=== PATIENT | male | born 1965 ===

== ENCOUNTER 2025-01-29 07:00 | Day surgery (SDC) | payer MEDICAID ==
[~2025-01-29 07:00] MED LIST: ALPRAZolam 0.25 MG TAB PO PRN; ALPRAZolam 0.5 MG TAB PO PRN; HEPARIN SODIUM,PORCINE (1 ML) 2,500 UNIT in SODIUM CHLORIDE 0.9% 250 ML IRRIGATION PRN; HEPARIN SODIUM,PORCINE 10,000 UNIT in SODIUM CHLORIDE 0.9% 1,000 ML IRRIGATION PRN; NITROGLYCERIN SL TABS 0.4 MG TAB SUBLINGUAL PRN
[2025-01-29 07:37] LABS: Glucose,Whole Blood 176 mg/dL (70-110)
[2025-01-29 07:43] LABS: Basophils % (A) 1 %; Eosinophils # (A) 0.2 k/uL (0-0.7); Eosinophils % (A) 2 %; HCT 48.1 % (39.0-53.0); Lymphocytes # (A) 1.7 k/uL (1.0-4.8); Lymphocytes % (A) 22 %; MCH 28.9 pg (25.0-35.0); MCHC 31.1 g/dL (31.0-37.0); MCV 92.7 fL (80.0-100.0); Monocytes # (A) 0.4 k/uL (0-1.0); Monocytes % (A) 6 %; Neutrophils # (A) 5.1 k/uL (1.3-7.7); Neutrophils % (A) 68 %; Platelet Count 143 k/uL (150-450); RBC 5.18 m/uL (4.30-5.90); RDW 14.2 % (11.5-15.5); WBC 7.5 k/uL (3.8-10.6)
[2025-01-29] MEDS: ASPIRIN 325 MG TAB PO STA (07:50)
[2025-01-29 07:58] LABS: African American GFR (CKD) >90 (>60 ml/min/1.73 sqM); Anion Gap 9 mmol/L; Blood Urea Nitrogen 14 mg/dL (9-20); Calcium 9.4 mg/dL (8.4-10.2); Carbon Dioxide 26 mmol/L (22-30); Chloride 100 mmol/L (98-107); Glucose 190 mg/dL (74-99); Non-African American GFR(CKD) >90 (>60 ml/min/1.73 sqM); Sodium 135 mmol/L (137-145)
[2025-01-29] MEDS: SODIUM CHLORIDE 0.9% 1,000 ML in EMPTY BAG 1 BAG IV SCH ×2 (07:58→18:56)
[2025-01-29] MEDS: IV FLUID CONTINUATION 1,000 ML IV ONE (07:59)
[2025-01-29] MEDS: fentaNYL (PF) 50 MCG/ML 2 ML AMP IVP ONE (09:08)
[2025-01-29] MEDS: MIDAZOLAM 2 MG/2 ML VIAL IVP ONE (09:16)
[2025-01-29] MEDS: LIDOCAINE 1% INJ 10MG/ML (20 ML MDV) SQ ONE (09:16)
[2025-01-29] MEDS: VERAPAMIL SYRINGE (5 MG/10 ML) INTRAARTER ONE (09:18)
[2025-01-29] MEDS: CLOPIDOGREL 75 MG TAB PO ONE (09:32)
[2025-01-29] MEDS: IOPAMIDOL-370 100ML BTL INJ ONE ×2 (09:50→10:07)
[2025-01-29] MEDS ORDERED: NITROGLYCERIN SL TABS 0.4 MG TAB SUBLINGUAL PRN (10:26)
[2025-01-29] MEDS ORDERED: MAG HYDROX/AL HYDROX/SIMETH 30 ML CUP PO PRN (10:26)
[2025-01-29] MEDS ORDERED: RX INFO: IV CONTRAST WAS GIVEN 1 EACH MISC MISCELLANE PRN (10:26)
[2025-01-29] MEDS ORDERED: ZOLPIDEM 5 MG TAB PO PRN (10:26)
[2025-01-29] MEDS ORDERED: ATROPINE SULFATE 0.1 MG/ML 10ML SYRINGE IV PRN (10:26)
--- NOTE | 2025-01-29 10:36 | P.CARDCATH ---
Date of Procedure: 01/29/25 Description of Procedure: Cardiac Catheterization: The patient is a 59-year-old male with a known history of hypertension, hyperlipidemia, diabetes, history of CAD and prior PCI of the LAD and persistent atrial fibrillation who had a recent abnormal myocardial fusion imaging with evidence of stress-induced schema involving the anterolateral wall. Recommendations were made regarding cardiac catheterization, the risks and the complications were discussed with the patient who is in full understanding and agreement. Procedure Description: Patient was brought to [facility] in fasting semi-sedated state after receiving Fentanyl and Benadryl achieiving moderate conscious sedated state. Using Xylocaine Anesthesia and modified Seldinger technique, a 6-[place] sheath was introduced in the right radial artery . Subsequently, selective coronary angiography was performed using a 5-[place] 3.5 bend Anabel catheter. Multiple views of the coronary artery including hemiaxial views were obtained. The 5 [place] pigtail catheter was used to cross the aortic valve and LVEDP was calculated. PCI: After removing the catheters a 6 [place] CLS 3.5 guiding catheter was introduced and after cannulating the left main a 0.014 BMW J-wire was positioned in the distal LAD. Subsequently a 2.5 x 12 mm trek balloon was advanced and 2 inflations at 8 rosio were done. After removing the balloon a Joystickers ambler IVUS catheter was introduced and images were obtained that revealed a distal vessel of 3.5-4 mm and calcified artery. After removing the catheter a 3.5 x 18 mm Xience sharron point stent was advanced and deployed at 16 rosio, repeat IVUS imaging was performed and revealed under deployment proximally. At that point a 4.0 x 8 mm NC trek balloon was advanced and multiple inflations at 12 rosio were done. After removing the wire images were obtained and revealed stable successful stenting. Following that, catheter and sheath were removed. Hemostasis was obtained with deployment of vascular band . There was no immediate complication. Patient was returned to room in stable condition. Of note, the patient received a total of 7000 units of intravenous heparin as well as intra-arterial verapamil. He received an oral loading dose of clopidogrel. His ACT was monitored. He had chest discomfort and EKG changes that resolved at the end of the procedure. Findings: Fluoroscopy: Calcifications of the coronary arteries was noted Left main: This is a large size vessel, trifurcating into LAD, ramus intermedius and left circumflex, left main has no obstructive disease LAD: This is a large size vessel, reaching to the apex with a wraparound apex segment, giving rise to small diagonal branch and mid segment. The proximal LAD has a 95% eccentric lesion close to the ostium. The mid LAD stented segment is patent, there is mild in-stent restenosis of 20 to 30% without high-grade stenosis Left circumflex: This is a codominant vessel, large in caliber, giving rise to a small obtuse marginal branch proximally, the second obtuse marginal branches in the midsegment and small. Distally is bifurcating into PLV and PDA. The left circumflex has mild intimal disease with no high-grade stenosis RCA: This is a codominant vessel, moderate in caliber, giving rise to a PDA. In the distal RCA there is a 60% plaque, the distal vessel is small in caliber Ramus intermedius: This is a large size vessel that has no evidence of high- grade stenosis Left Ventriculogram: Not performed Hemodynamics: There was no gradient across the aortic valve, LVEDP was 14-16 mmHg Conclusion: 1. Calcified coronary arteries 2. Severe stenosis in the proximal LAD with patent stent in the mid LAD 3. Mild disease in the left circumflex and moderate disease in the distal RCA 4. Successful stenting of the proximal LAD with reduction stenosis from 95% to less than 5% and DANILO-3 flow, using IVUS imaging Recommendations: The patient will continue on aspirin and clopidogrel for 1 week then we will stop the aspirin and continue on Xarelto and clopidogrel for 6 months in addition to aggressive coronary risks modification, attempting to maintain LDL below 70 mg/dL. The findings and the recommendations were discussed with the patient and the family and they were in full understanding and agreement. Duration of sedation is 47 minutes.
[2025-01-29] MEDS: PIOGLITAZONE 30 MG TAB PO SCH (15:03)
[2025-01-29] MEDS: lisinopriL 20 MG TAB PO SCH (15:04)
[2025-01-29] MEDS: amLODIPine 10 MG TAB PO SCH (15:04)
[2025-01-29] MEDS: METOPROLOL SUCCINATE (ER) 100 MG TAB.ER.24H PO SCH (15:04)
[2025-01-29] MEDS: DAPAGLIFLOZIN PROPANEDIOL 10 MG TABLET PO SCH (15:04)
[2025-01-29] MEDS: ATORVASTATIN 40 MG TAB PO SCH (20:21)
[2025-01-30 04:08] LABS: ALT 23 U/L (4-49); AST 22 U/L (17-59); African American GFR (CKD) >90 (>60 ml/min/1.73 sqM); Albumin 4.1 g/dL (3.5-5.0); Alkaline Phosphatase 60 U/L (38-126); Anion Gap 11 mmol/L; Blood Urea Nitrogen 11 mg/dL (9-20); Carbon Dioxide 22 mmol/L (22-30); Chloride 103 mmol/L (98-107); Globulin 2.1 g/dL; Glucose 136 mg/dL (74-99); Non-African American GFR(CKD) >90 (>60 ml/min/1.73 sqM); Potassium 4.2 mmol/L (3.5-5.1); Sodium 136 mmol/L (137-145); Total Bilirubin 1.5 mg/dL (0.2-1.3); Total Protein 6.2 g/dL (6.3-8.2)
[2025-01-30 07:51] VITALS: BP 106/58; PULSE 61; RESP 16; TEMP 98.1
[2025-01-30] MEDS: ASPIRIN 81 MG PO SCH (09:12)
[2025-01-30] MEDS: CLOPIDOGREL 75 MG TAB PO SCH (09:12)
--- NOTE | 2025-01-30 10:41 | P.DS ---
Providers Expected date of discharge: 01/30/25 Attending physician: Ethel Zavaleta Consults: 01/29/25 10:26 Consult Physician Routine Consulting Provider: [facility] Consult Reason/Comments: Post Interventional patient Do you want consulting provider notified?: Already Contacted Primary care physician: [facility] Course: This is a 59-year-old male patient of Dr. Zavaleta with past medical history of hypertension, dyslipidemia, diabetes, CAD with prior PCI of the LAD, persistent atrial fibrillation. Patient underwent myocardial fusion imaging which showed evidence of stress-induced ischemia involving the anterior lateral wall. He was recommended the patient undergo cardiac catheterization which was performed yesterday. The findings of the cardiac catheterization were calcified coronary arteries, severe stenosis in the proximal LAD and patent stent in the mid LAD, mild disease in the left circumflex and moderate disease in the distal RCA. Patient underwent successful stenting of the proximal LAD. Patient was started on Plavix with plan for 6 months, stop the aspirin continue Xarelto. Patient is seen today in his room. He denies any chest pain, no chest pressure, no shortness of breath. Blood pressure 106/58, heart rate 61, pulse ox 96% on room air. Repeat blood work reveals BUN 11 creatinine 0.53 and potassium 4.2. Upon review, Dr. Henley is made the following recommendations: Decrease Xarelto to 15 mg daily, continue aspirin for at least 1 week and continue Plavix. Physical examination: Gen: This is 59-year-old male in no acute distress VS: reviewed HEENT: Head is atraumatic, normocephalic. Pupils equal, round. Sclerae is anicteric. NECK: Supple. No JVD. LUNGS: Clear to auscultation. No wheezes or rhonchi. No intercostal retractions. HEART: Irregular rate and rhythm. 2/6 systolic ejection murmur. ABDOMEN: Soft No tenderness. EXTREMITIES: No pedal edema. No calf tenderness. NEUROLOGICAL: Patient is awake, alert and oriented x3. Assessment: Abnormal stress test CAD status post stent of the proximal LAD Hypertension, dyslipidemia, diabetes Prior history of coronary artery disease with prior PCI of the LAD Persistent atrial fibrillation Plan: Patient is cleared for discharge and will follow-up in the office with Dr. Zavaleta in 1 week. Nurse practitioner note has been reviewed, I agree with documented findings and plan of care. Patient was seen and examined. Patient Condition at Discharge: Good Plan - Discharge Summary Discharge Rx Participant: No New Discharge Prescriptions: New Nitroglycerin Sl Tabs [Nitrostat] 0.4 mg SUBLINGUAL Q5M PRN #25 tab PRN Reason: Chest Pain Clopidogrel [Plavix] 75 mg PO DAILY #90 tab Rivaroxaban [Xarelto] 15 mg PO DAILY #30 tab Continue Metoprolol Succinate (ER) [Toprol XL] 100 mg PO PC-LUNCH Empagliflozin [Jardiance] 25 mg PO PC-LUNCH Atorvastatin [Lipitor] 40 mg PO HS glipiZIDE/METFORMIN HCL [glipiZIDE/METFORMIN HCL 5-500 mg] 1 tab PO PC-LUNCH amLODIPine BESYLATE/BENAZEPRIL [amLODIPine BESYLATE/BENAZEPRIL 10-20 mg] 1 tab PO PC-LUNCH Pioglitazone HCl 30 mg PO PC-LUNCH Aspirin [Adult Low Dose Aspirin EC] 81 mg PO DAILY #0 Discontinued Rivaroxaban [Xarelto] 20 mg PO HS Discharge Medication List Atorvastatin [Lipitor] 40 mg PO HS 01/28/25 [History] Empagliflozin [Jardiance] 25 mg PO PC-LUNCH 01/28/25 [History] Metoprolol Succinate (ER) [Toprol XL] 100 mg PO PC-LUNCH 01/28/25 [History] Pioglitazone HCl 30 mg PO PC-LUNCH 01/28/25 [History] amLODIPine BESYLATE/BENAZEPRIL [amLODIPine BESYLATE/BENAZEPRIL 10-20 mg] 1 tab PO PC-LUNCH 01/28/25 [History] glipiZIDE/METFORMIN HCL [glipiZIDE/METFORMIN HCL 5-500 mg] 1 tab PO PC-LUNCH 01/28/25 [History] Aspirin [Adult Low Dose Aspirin EC] 81 mg PO DAILY #0 01/30/25 [Rx] Clopidogrel [Plavix] 75 mg PO DAILY #90 tab 01/30/25 [Rx] Nitroglycerin Sl Tabs [Nitrostat] 0.4 mg SUBLINGUAL Q5M PRN #25 tab 01/30/25 [Rx] Rivaroxaban [Xarelto] 15 mg PO DAILY #30 tab 01/30/25 [Rx] Follow up Appointment(s)/Referral(s): Ethel Zavaleta MD [STAFF PHYSICIAN] - 02/04/25 2:15 pm (FOLLOW UP APPOINTMENT MADE. ) Patient Instructions/Handouts: Heart Catheterization (DC), Heart Catheterization (GEN) Activity/Diet/Wound Care/Special Instructions: NO FLEXING AT THE WRIST OR LIFTING ANYTHING HEAVIER THAN 5 POUNDS FOR 5 DAYS REMOVE ANY DRESING OVER PUNCTURE SITE IN 24 HOURS AND LEAVE OPEN TO AIR DO NOT SUBMERGE WRIST IN WATER FOR 3 DAYS IF SITE BLEEDS, HOLD PRESSURE FOR 10MIN, IF DOESN'T SUBSIDE HAVE SOMEONE DRIVE YOU TO ER OR CALL EMS WATCH FOR PALLOR, COOLNESS, NUMBNESS OR TINGLING OF EXTREMITY.
[2025-01-30] MEDS ORDERED: RIVAROXABAN 20 MG TAB PO SCH (21:00)
== END 2025-01-30 10:43 | disposition home or self-care (01) ==
LOC: CATHCVL 07:00 → 6NMEDSUR 10:04 → CATHCVL 01-30 10:43
PROVIDERS: ATTEND Internal Medicine Interventional Cardiology
DX: I25.10 Atherosclerotic heart disease of native coronary artery without angina pectoris (principal); Z95.5 Presence of coronary angioplasty implant and graft; I10 Essential (primary) hypertension; E78.5 Hyperlipidemia, unspecified; E11.9 Type 2 diabetes mellitus without complications; I48.19 Other persistent atrial fibrillation; Z79.02 Long term (current) use of antithrombotics/antiplatelets; Z79.01 Long term (current) use of anticoagulants; Z79.82 Long term (current) use of aspirin; Z79.84 Long term (current) use of oral hypoglycemic drugs
CPT/HCPCS: 80048; 85025; 93458; J2250; J2003; J3010; J1644; Q9967; 80053; 92978